=== PATIENT | male | born 1965 | race African-American/Black ===

== ENCOUNTER 2018-01-16 16:59 | Emergency (ER) | payer BC, SELFPAY ==
[~2018-01-16 16:59] MED LIST: ISOVUE-370 76%-LOCM 1 ML ONE
[2018-01-16] MEDS ORDERED: methylPREDNISolone Sod Succ/PF 125 MG/2 ML VIAL ONE ×2 (18:15→18:22)
[2018-01-16] MEDS ORDERED: Acetaminophen 325 MG TAB ONE (19:49)
[2018-01-16] MEDS ORDERED: oxyCODONE/Acetaminophen 5 mg/325 mg Tablet PO SCH (20:15)
[2018-01-16] MEDS ORDERED: Potassium Chloride 20 MEQ TAB ONE (20:38)
--- NOTE | 2018-01-16 21:12 | CT ---
CTA CHEST WITH 3D VOLUME RENDERIN01/16/18 INDICATION: Acute onset short of breath. Elevated D-dimer with cough. FINDINGS: Streak artifact from contrast bolus in the regional venous structures does limit evaluation as this p roduces areas of beam hardening artifact. There is no definite evidence of a large, central filling d efect of the pulmonary truck or main pulmonary arteries. There are enlarged thoracic lymph nodes invo lving the mediastinum and bilateral hilar regions. Respiratory motion artifact limits evaluation of the pulmonary parenchyma. There are scattered nonspe cific ground glass nodules of each lung. There is no significant effusion, or discrete pneumothorax. The thoracic aorta is nonaneurysmal. There is coronary artery calcium. IMPRESSION: 1. Limited exam although no definite large, central pulmonary embolus. 2. Coronary artery disease. 3. Scattered nonspecific pulmonary nodules which could relate to an atypical infectious/inflamma tory process given multifocal ground glass nodular opacities with component of tree-in-bud nodularity suggested. Recommend appropriate clinical management for an atypical infection with imaging followup on an outpatient basis to confirm expected resolution. 4. Nonspecific adenopathy. This could relate to infectious/inflammatory versus neoplastic etiolo gy, and may be reassessed at the time of short term imaging followup. Code T POS: BRENDA
== END 2018-01-16 22:39 | disposition left against medical advice (07) ==
LOC: ERS 16:59
DX: J44.1 Chronic obstructive pulmonary disease with (acute) exacerbation (principal); F31.9 Bipolar disorder, unspecified; F17.210 Nicotine dependence, cigarettes, uncomplicated; F41.9 Anxiety disorder, unspecified; I10 Essential (primary) hypertension; E78.00 Pure hypercholesterolemia, unspecified
CPT/HCPCS: 71275; 96374; J2930; J7620